=== PATIENT | female | born 1975 | race African-American/Black ===

== ENCOUNTER → 2016-05-18 | Outpatient (CLI) | payer BC ==
[2013-08-31 09:38] VITALS: BP 112/69
[~2016-05-18] MED LIST: MULT-18 PO
--- NOTE | 2016-05-18 10:31 | KCIC ---
PROCEDURE Thyroid sonogram. HISTORY Thyroid nodule follow-up. TECHNIQUE Sonographic imaging of the thyroid was performed. COMPARISON 07/22/2014 FINDINGS The right thyroid lobe measures 4.5 x 2.2 x 1.9 cm. The left thyroid lobe measures 4.1 x 2.3 x 1.7 cm. The isthmus measures 3 mm. The thyroid parenchyma is mildly diffusely heterogeneous. No discrete solid or cystic thyroid lesion is seen. There is a lymph node with benign fatty hilum within the right neck measuring 11 x 5 by 5 mm. No suspicious lymph node is seen. IMPRESSION Slightly heterogeneous thyroid parenchymal echogenicity without a discrete nodule or cyst. Electronically signed by: Moraima Jauregui (May 18, 2016 10:30:21)
--- NOTE | 2016-05-18 10:48 | KCIC ---
Bilateral diagnostic digital mammograms with CAD: HISTORY Lateral left breast pain for 1 year. Increasing over the past few months. COMPARISON Baseline exam. FINDINGS Breast density category B. The skin and nipples show no abnormalities. No abnormal lymph nodes are seen in the axilla. The breast parenchyma shows scattered fibroglandular density. In the 10 o'clock B position, there appears to be a nodular density measuring approximately 1.4 centimeters in greatest dimension with no associated calcification. This will be further evaluated with ultrasound. There are no other dominant masses, suspicious calcifications or architectural distortions. IMPRESSION 1.4 centimeter nodular density at the 10 o'clock B position of the left breast. No abnormality evident in the lateral breast. Ultrasound to follow. This study was interpreted with the benefit of Computerized Aided Detection (CAD). Mammography is not 100% sensitive in detecting breast cancer. Therefore, a self breast exam and a clinical breast exam are very important. A negative mammogram does not negate a clinically suspicious finding and should not result in a delay in biopsying a clinically suspicious abnormality. BI-RADS category 0: Incomplete. Ultrasound to follow. Left breast ultrasound: In the 10 o'clock position 7 centimeters from the nipple in the left breast, there appears to be a 1 centimeter hypoechoic lesion with some posterior acoustic shadowing. This would correspond with the area of mammographic concern and further evaluation with ultrasound biopsy is recommended. No other focal abnormalities are seen in the left breast. No abnormal appearing lymph nodes are seen in the left axilla. Impression: 1 centimeter nodular appearing density at the 10 o'clock position of the left breast 7 centimeters from the nipple. Recommend further evaluation with ultrasound biopsy. BI-RADS category 4: Suspicious. The patient was notified with these findings at the time of the examination and is to follow-up with her clinician. Jessica Nevarez [employer] CHECKER was notified with these findings on 05/18/2016 at 10:42 a.m. This patient's information has been entered into a reminder system for the patient to be notified with the results of this examination and a target date for her next mammograms. Electronically signed by: Adela Jacobsen MD (May 18, 2016 10:46:39)
== END | disposition home or self-care (01) ==
LOC: KCIC MAMMO 07:59
PROVIDERS: ATTEND Nurse Practitioner Family
DX: R92.8 Other abnormal and inconclusive findings on diagnostic imaging of breast (principal); E04.1 Nontoxic single thyroid nodule; N64.4 Mastodynia
CPT/HCPCS: 76536; 76641; G0204; 77066

== ENCOUNTER → 2016-06-01 | Outpatient (CLI) | payer BC ==
[~2016-06-01] VITALS: Ht 165.1 cm; Wt 124.3 kg
[2016-06-01 08:26] VITALS: BP 138/73
[2016-06-01 11:35] VITALS: BP 148/75
--- NOTE | 2016-06-04 14:09 | PATHOLOGY ---
PATHOLOGY REPORT * * * * * * * * FINAL DIAGNOSIS: Breast tissue, left breast mass vacuum assisted needle biopsy: - Fibroadenoma. COMMENT: There is no evidence of malignancy. (JPM:csd; d/t: 06/04/2016) REPORT ELECTRONICALLY SIGNED BY: Nixon Reyes M.D. DATE/TIME: 06/04/2016 14:09 * * * * * * * * GROSS PATHOLOGY: Received in formalin labeled "Marine Brian," and additionally labeled on the requisition as, "left breast mass". Received are multiple needle cores of yellow-ricks fibrofatty tissue measuring 3.0 x 1.8 x 0.3 cm in aggregate dimensions. The tissue is submitted in its entirety in cassette A1. The cold ischemic time is 3 minutes. The total formalin fixation time is 12 hours and 28 minutes. (CAA; 06/01/2016) INITIAL CPT CODE(S): A; 23396 Professional services performed [place] [facility] [address] Technical services performed by [facility] at [address] [place] [address]. SPECIMEN(S) RECEIVED: A.Left breast mass CLINICAL HISTORY: Left breast mass PATIENT: MARINE BRIAN /AGE: 1002/11/1975 (Age: 41) PATIENT #: [id number] ALT CASE #: SPECIMEN COLLECTION DATE: 06/01/2016 SPECIMEN RECEIVED DATE: 06/01/2016 [facility] - [address] [place] [address] - PHONE: [phone] * * * END OF REPORT * * *
--- NOTE | 2016-06-06 12:03 | RAD ---
Ultrasound-guided vacuum-assisted left breast biopsy, 06/01/2016: History: Suspicious lesion A previous ultrasound study demonstrated a suspicious hypoechoic process at the 10:00 location in the left breast. Under local anesthesia, aseptic conditions and sonographic guidance the [employer] biopsy instrument was passed into this area via a inferomedial approach. Multiple 12-gauge vacuum-assisted core samples were obtained and sent to pathology for evaluation. A biopsy marker was deposited at the biopsy site. The biopsy instrument was then removed and hemostasis obtained. Two-view postprocedural mammograms were then obtained to document position of the biopsy marker. The biopsied lesion is obscured mammographically by moderate biopsy-related hemorrhage in the breast. Additional breast compression was performed to assure stabilization of the hematoma prior to patient discharge. The patient left the department in good condition. The subsequent pathology report indicated the presence of a fibroadenoma. This is considered to be a concordant finding.
== END | disposition home or self-care (01) ==
LOC: US 07:49
PROVIDERS: ATTEND Surgery
DX: N63 Unspecified lump in breast (principal)
CPT/HCPCS: 19081; 76942; C1713; G0206; 88305; 77065